=== PATIENT | female | born 1975 | race Caucasian/White ===

== ENCOUNTER 2020-07-06 13:45 | Outpatient (REF) | payer OTHER, SELFPAY | END 2020-07-06 13:46 | disposition home or self-care (01) | LOC: HO.MDS 13:45 | PROVIDERS: PCP Pediatrics; Visit Provider Internal Medicine Medical Oncology | DX: O99.019 Anemia complicating pregnancy, unspecified trimester (principal); D50.9 Iron deficiency anemia, unspecified; Z3A.00 Weeks of gestation of pregnancy not specified | CPT/HCPCS: 96365; J1439 ==

== ENCOUNTER 2020-07-13 11:59 | Outpatient (REF) | payer OTHER, SELFPAY ==
[2020-07-13 12:36] LABS: MANUAL DIFF FLAG NO
[2020-07-13 12:40] LABS: Basophils Percent Auto 0.2 % (0-2); Eosinophils Absolute Auto 0.2 X10*3/uL (0.0-0.4); Eosinophils Percent Auto 1.9 % (0-4); Hematocrit 30.7 % (37-47); Hemoglobin 10.1 g/dl (12.0-16.0); Imm Gran Abs Auto 0.05 X10*3/uL (0.00-0.03); Imm Gran Pct Auto 0.6 % (0.0-0.4); Lymphocytes Absolute Auto 1.4 X10*3/uL (1.2-4.9); Lymphocytes Percent Auto 16.2 % (20-40); Mean Corpuscular HGB Conc 32.9 g/dl (31.0-35.0); Mean Corpuscular Hemoglobin 27.8 pg (27.0-33.0); Mean Corpuscular Volume 84.6 fL (80-98); Mean Platelet Volume 10.4 fL (9.4-12.3); Monocytes Absolute Auto 0.5 X10*3/uL (0.1-1.2); Neutrophils Absolute Auto 6.6 X10*3/uL (2.0-8.3); Neutrophils Percent Auto 75.1 % (45-73); Platelet Count 268 X10*3/uL (160-400); Red Blood Count 3.63 X10*6/uL (4.20-5.50); Red Cell Distribution Width 17.3 % (11.0-16.0); White Blood Count 8.7 X10*3/uL (4.8-10.8)
[2020-07-13 13:16] LABS: Iron 94 mcg/dL (30-160); Percent Iron Saturation 20 % (15-50); Total Iron Binding Capacity 472 mcg/dL (228-428); Unsaturated Iron Binding 378 ug/dL
[2020-07-13 13:37] LABS: Ferritin 448 ng/mL (10-250)
== END 2020-07-13 12:00 | disposition home or self-care (01) ==
LOC: HO.MDS 11:59
PROVIDERS: PCP Pediatrics; Visit Provider Internal Medicine Medical Oncology
DX: O99.019 Anemia complicating pregnancy, unspecified trimester (principal); D50.9 Iron deficiency anemia, unspecified; O09.519 Supervision of elderly primigravida, unspecified trimester; Z3A.00 Weeks of gestation of pregnancy not specified
CPT/HCPCS: 36415; 82728; 83540; 85025; 96365; J1439

== ENCOUNTER 2022-01-24 11:04 | Emergency (ER) | payer OTHER, SELFPAY ==
[2022-01-24 11:12] VITALS: BP 119/70; PULSE 100; RESP 18; TEMP 36.7; O2SAT 100; BMI 17.6
[2022-01-24 11:14] VITALS: BP 113/58; PULSE 84; RESP 18; TEMP 36.6; O2SAT 98
[2022-01-24 11:37] LABS: MANUAL DIFF FLAG NO
[2022-01-24 11:41] LABS: Basophils Percent Auto 0.4 % (0-2); Eosinophils Absolute Auto 0.1 X10*3/uL (0.0-0.4); Eosinophils Percent Auto 0.9 % (0-4); Hematocrit 34.8 % (37.0-47.0); Hemoglobin 11.9 g/dl (12.0-16.0); Imm Gran Abs Auto 0.04 X10*3/uL (0.00-0.03); Imm Gran Pct Auto 0.4 % (0.0-0.4); Lymphocytes Absolute Auto 1.9 X10*3/uL (1.2-4.9); Lymphocytes Percent Auto 21.2 % (20-40); Mean Corpuscular HGB Conc 34.2 g/dl (31.0-35.0); Mean Corpuscular Hemoglobin 30.2 pg (27.0-33.0); Mean Corpuscular Volume 88.3 fL (80.0-98.0); Mean Platelet Volume 9.7 fL (9.4-12.3); Monocytes Absolute Auto 0.4 X10*3/uL (0.1-1.2); Monocytes Percent Auto 4.8 % (2-11); Neutrophils Absolute Auto 6.4 x10*3/uL (2.0-8.3); Neutrophils Percent Auto 72.3 % (45-73); Platelet Count 315 X10*3/uL (160-400); Red Blood Count 3.94 X10*6/uL (4.20-5.50); Red Cell Distribution Width 12.4 % (11.0-16.0); White Blood Count 8.9 X10*3/uL (4.8-10.8)
[2022-01-24 11:58] LABS: Alanine Aminotransferase 7 U/L (0-31); Albumin Level 4.5 g/dL (3.5-5.0); Alkaline Phosphatase 57 U/L (39-117); Anion Gap 16 (12-20); Aspartate Amino Transferase 16 U/L (5-31); Bilirubin Total 0.4 mg/dL (0.0-1.0); Blood Urea Nitrogen 7 mg/dL (9-16); Calcium 9.4 mg/dL (8.4-10.2); Carbon Dioxide 22 mmol/L (22-29); Chloride 105 mmol/L (96-108); Creatinine Clr Calc Pharmacy 72.3; Estimated Glomerular Filt Rate > 60; Glucose Random 156 mg/dL (60-115); Potassium 3.8 mmol/L (3.3-5.1); Sodium 139 mmol/L (135-145)
[2022-01-24 14:12] VITALS: BP 105/64; PULSE 80; RESP 18; TEMP 36.6; O2SAT 98
== END 2022-01-24 20:07 | disposition left against medical advice (07) ==
PROVIDERS: Emergency Provider Emergency Medicine
DX: N92.0 Excessive and frequent menstruation with regular cycle (principal); Z79.899 Other long term (current) drug therapy
CPT/HCPCS: 36415; 80053; 85025; 99282; 99283

== ENCOUNTER → 2023-12-10 13:37 | Outpatient (RCR) | payer OTHER, SELFPAY ==
[2020-07-06 14:26] VITALS: BP 116/61; RESP 18; TEMP 36.6
--- NOTE | 2020-07-06 14:27 | P.CNHO_ITS ---
Subjective - Subjective Chief complaint: Consult for anemia in . Patient: new to practice Consult date: 07/06/20 Requesting Physician: Mallory Means. Primary Care Provider: Mallory Means. Medical Summary: DIAGNOSIS: Iron deficiency anemia. : At 37 weeks of gestation. HPI - Consult Narrative Reason for consult: Consult for: Anemia. Narrative: Ruthie Perez is a pleasant 44 year old lady, who is at 37 weeks of gestation. She had labs done by her general internist and physician leader:'[facility].' Her CBC from 07/04 revealed: WBC 8.2, HGB 9.5, HCT 28.9, MCV 82.6, PLT 281. ROS: She has been exhausted. Denies fever nor chills. Her appetite is not good but she is not a big eater. She has been gaining weight consistent with her . No headache, sometimes she gets dizziness when she tries to get up fast. She can get short of breath when she exerts herself. No chest pain. She does get heartburn. She has been taking Tums. She gets the baby pain in the belly. Denies nausea or vomiting. Bowels are regular. No gross blood in the stools. Denies any urinary complaints except for frequency. She gets pain in her back and hips constantly. Denies any focal weakness. She denies depression. She gets itching at night during her . 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 She had 1 miscarriage for which she required a D&C. Family history: Mom has MS. Dad has diabetes and other medical issues. Social history: She used to work for the [employer]. She has a boyfriend. She has 5 children. This is her 6th baby. She denies smoking nor alcohol use. No drug abuse. Review of Systems - Constitutional Reports system reviewed and no additional complaints, except as documented, Reports fatigue, Reports lack of energy, Reports malaise, Reports poor appetite, Reports weight gain, Denies fever(s) - Eyes Reports system reviewed and no additional complaints, except as documented - ENT Reports system reviewed and no additional complaints, except as documented - Cardiovascular Reports system reviewed and no additional complaints, except as documented - Respiratory Reports no additional respiratory complaints - Gastrointestinal Reports system reviewed and no additional complaints, except as documented - Genitourinary Reports no additional female genitourinary complaints - Musculoskeletal Reports system reviewed and no additional complaints, except as documented - Integumentary/Breasts Skin/Breast: Reports no additional skin complaints - Neurologic Reports system reviewed and no additional complaints, except as documented - Psychiatric Reports system reviewed and no additional complaints, except as documented - Endocrine Reports no additional endocrine complaints - Hematologic/Lymphatic Reports system reviewed and no additional complaints, except as documented - Allergic/Immunologic Reports system reviewed and no additional complaints, except as documented Oncology Screenings - ECOG Performance Status ECOG Performance Status: 0 [facility] Medical History: Medical History (Last Updated 07/06/20 @ 15:42 by Lolita Ny RN) Anemia Celiac disease Family History: Family History (Last Reviewed 07/06/20 @ 15:42 by Lolita Ny RN) Mother Multiple sclerosis Father Diabetes Surgical History: Surgical History (Last Reviewed 07/06/20 @ 15:42 by Lolita Ny RN) H/O sinus surgery S/P dilatation and curettage Social History: Social History (Last Updated 07/06/20 @ 15:42 by Lolita Ny RN) Alcohol History: Alcohol intake: never Alcohol History Details: Alcohol intake frequency: does not drink Tobacco History: Smoking Status: Never smoker Substance Use History: Use of substances other than those prescribed or required for medical reasons : No Occupation Assessmet: Current occupational status: previously employed Current occupational status: other Current occupation: house Smoking status: Never smoker Home Medications and Allergies Home Medications Medication Instructions Recorded Confirmed Type Iron (ferrous sulfate) 07/06/20 07/06/20 History [id number] See Rx Instructions .ROUTE .COMPLEX 07/06/20 07/06/20 History [] Allergies Allergy/AdvReac Type Severity Reaction Status Date / Time NSAIDS (Non-Steroidal Allergy Unknown DIFF Verified 07/06/20 15:42 Anti-Inflamma BREATHING [NSAIDS (NON-STEROIDAL ANTI-INFLAMMA] nsaids Allergy Unknown shortness Uncoded 07/06/20 15:42 of breath Physical Exam - Constitutional Present: mild distress - Routine HEENT Exam Head: Present: normal inspection ENT: Present: mucous membranes moist - Routine Neck Exam Present: supple - Routine Respiratory Exam Present: CTAB - Routine Cardiovascular Exam Cardiovascular: Present: RRR, S1, S2 - Routine Abdominal Exam Present: tenderness - Routine Extremities Exam Present: nontender - Routine Skin Exam Present: intact - Routine Neurological Exam Present: alert, oriented X3 - Detailed Neurological Exam: Coma Scale Eye Opening: Spontaneous (4) Verbal Response: Oriented (5) Motor Response: Obeys commands (6) Clayton Coma Scale Total: 15 - Routine Psychiatric Exam Present: normal affect Assessment and Plan (1) Anemia affecting in third trimester Status: Acute Database: CBC: WBC 8.7, HGB 10.1, HCT 30.7, MCV 84.6, PLT 268. Iron profile: 94/472/20/448. This is a pleasant 44-year-old lady who is expecting her 6th baby. She is at 37 weeks of gestation. She has been noted to be anemic. From 07/04 hemoglobin: 9.5/hematocrit 28.9. Concern is depletion of iron stores related to multiple pregnancies. I was called by her Ob, Cherry montilla, yesterday to inform me of her status. PLAN: I scheduled her for an iron infusion: Injectofer, today. She will receive a dose in short stay surgery. It will be repeated in 1 week. Her due date is mid July, so hopefully it will help improve her H&H so she can deliver safely. She will return in a month for a follow-up visit. Thank you, CC: Mallory Means. Cherry Montilla.
--- NOTE | 2020-07-06 15:44 | MHC.HEMONC ---
Provider seen pt. Pt summary updated with nurse.
--- NOTE | 2020-07-20 16:25 | MHC.HEMONC ---
pt called to say she completed Injectofer and wanted to know if she should continue on iron po. Dr Lane said she need not take it as the IV iron will bring her HGB up. Pt informed.
--- NOTE | 2020-08-09 15:44 | HO.HEMONCTE1 ---
[facility]c Clinic Telehealth - Telehealth Location of Provider rendering services: Hem/onc office. Location of Patient: Home. Patient Identification confirmed using: Name, : Yes Telehealth Method: Via telephone. Patient verbally consented to treatment: Yes. Patient verbally consented to billing insurance company: Yes Patient informed of any privacy concerns related to visit: Yes Medical Summary - Medical Summary Date of Service: 08/09/20 Chief complaint: Follow-up for: Iron deficiency anemia in . Medical Summary: DIAGNOSIS: Iron deficiency anemia duringPregnancy, was seen at 37 weeks of gestation. CURRENT THERAPY: Received IV injectofer, 750 mg x 2. Interval History Interval history: Ruthie Perez is a pleasant 44 year old lady, with whom a tele visit was held. She tells me she is feeling, wonderful. She tells me her energy level came back up right away after the IV iron. She actually delivered her baby girl on 07/29. Subsequently she has been full of energy. She had a fingerstick hemoglobin checked and it was 15. ROS: She has a great energy level. Denies fever nor chills. Her appetite is not good but she is not a big eater. She has lost weight, after the delivery.. No headache, nor dizziness. She denies short of breath. No chest pain. She denies heartburn nor indigestion. Denies nausea or vomiting. Bowels are regular. No gross blood in the stools. Denies any urinary complaints. She denies joint pains. Denies any focal weakness. She denies depression. Previous history: She was initially seen at 37 weeks of gestation. She had labs done by her coin machine supervisor:'[facility].' Her CBC from 07/04 revealed: WBC 8.2, HGB 9.5, HCT 28.9, MCV 82.6, PLT 281. ROS: She gets itching at night during her . 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 She had 1 miscarriage for which she required a D&C. Family history: Mom has MS. Dad has diabetes and other medical issues. Social history: She used to work for the [employer]. She has a boyfriend. She has 5 children. This is her 6th baby. She denies smoking nor alcohol use. No drug abuse. Review of Systems - Constitutional Reports no additional constitutional complaints - Eyes Reports no additional eye complaints - ENT Reports no additional ear, nose, mouth, and throat complaints - Cardiovascular Reports no additional cardiovascular complaints - Respiratory Reports no additional respiratory complaints - Gastrointestinal Reports no additional gastrointestinal complaints - Genitourinary Reports no additional female genitourinary complaints - Musculoskeletal Reports no additional musculoskeletal complaints - Integumentary/Breasts Skin/Breast: Reports no additional skin complaints - Neurologic Reports no additional neurologic complaints - Psychiatric Reports no additional psychiatric complaints - Endocrine Reports no additional endocrine complaints - Hematologic/Lymphatic Reports no additional hematologic/lymphatic complaints - Allergic/Immunologic Reports no additional allergic/immunologic complaints Oncology Screenings - ECOG Performance Status ECOG Performance Status: 0 Home Medications and Allergies Home Medications Medication Instructions Recorded Confirmed Type multivitamin tab 08/09/20 08/09/20 History Allergies Allergy/AdvReac Type Severity Reaction Status Date / Time NSAIDS (Non-Steroidal Allergy Unknown DIFF Verified 07/06/20 15:42 Anti-Inflamma BREATHING [NSAIDS (NON-STEROIDAL ANTI-INFLAMMA] nsaids Allergy Unknown shortness Uncoded 07/06/20 15:42 of breath Exam Vital signs: Vital Signs Temp 98 F 07/06/20 14:26 Resp 18 07/06/20 14:26 BP 116/61 07/06/20 14:26 Weight 98.6 kg - Constitutional Present: mild distress - Routine HEENT Exam Head: Present: normal inspection Eye: Present: normal appearance ENT: Present: mucous membranes moist - Routine Neck Exam Present: full ROM - Routine Respiratory Exam Present: CTAB - Routine Cardiovascular Exam Cardiovascular: Present: RRR, S1, S2 - Routine Abdominal Exam Present: tenderness - Routine Rectal Exam Patient deferred: digital exam - Routine Extremities Exam Present: nontender - Routine Back/Spine/Pelvis Exam Back/Spine: Present: full ROM - Routine Skin Exam Present: intact - Routine Neurological Exam Present: alert, oriented X3 - Detailed Neurological Exam: Coma Scale Eye Opening: Spontaneous (4) - Routine Psychiatric Exam Present: normal affect Progress Note: A/P (1) Anemia affecting in third trimester Status: Acute Assessment and plan: This is a pleasant 44-year-old lady who delivered her 6th baby, 07/29. She had been noted to be anemic. From 07/04 hemoglobin: 9.5/hematocrit 28.9. Concern was depletion of iron stores related to multiple pregnancies. I was called by her Ob, Cherry montilla, to inform me of her status. Database: CBC: From 07/06: WBC 8.7, HGB 10.1, HCT 30.7, MCV 84.6, PLT 268. Iron profile: 94/472/20/448. I scheduled her for an iron infusion: Injectofer, the same day, in short stay surgery. She had a repeat dose 1 week, later. Luckily it did help improve her H&H, and she was able to deliver safely. Repeat hemoglobin by finger stick was 15. She did not want to come with the baby today, so a tele visit was held. PLAN: Will continue to monitor her blood count. She will return in 5 weeks for a follow-up visit. Will check labs then. Thank you, CC: Mallory Means. Cherry Montilla. - Time Spent With Patient Total time spent is greater than 50% in coordination of care (as documented) at patient's floor/unit and/or counseling patient: 15 - 24 minutes
--- NOTE | 2020-08-09 16:00 | MHC.HEMONCMA ---
Prior to televisit I reviewed history with patient.
== END | disposition home or self-care (01) ==
LOC: HO.ONC 07-06 13:49
PROVIDERS: Visit Provider Internal Medicine Medical Oncology
DX: O90.81 Anemia of the puerperium (principal); D50.9 Iron deficiency anemia, unspecified
CPT/HCPCS: 99204